=== PATIENT | male | born 1985 | race Caucasian/White ===

== ENCOUNTER 2024-07-07 18:21 | Emergency (ER) | payer BC ==
[2024-07-07] MEDS: Tetracaine HCl/PF 0.5% 4 ML Bottle EYELF ONE (19:56)
[2024-07-07] MEDS: Erythromycin Base 0.5% Ophth Oint 1 GM Tube EYELF ONE (19:57)
== END 2024-07-07 20:02 | disposition home or self-care (01) ==
LOC: MW.ED 18:21
DX: S05.01XA Injury of conjunctiva and corneal abrasion without foreign body, right eye, initial encounter (principal); E11.9 Type 2 diabetes mellitus without complications; I10 Essential (primary) hypertension; Z79.899 Other long term (current) drug therapy; X58.XXXA Exposure to other specified factors, initial encounter; Y93.89 Activity, other specified
CPT/HCPCS: 99283; A9270; J3490